=== PATIENT | female | born 1995 | race Caucasian/White ===

== ENCOUNTER 2017-08-14 23:50 | Emergency (ER) | payer MEDICAID, SELFPAY ==
[2017-08-14 23:51] VITALS: BP 160/92; PULSE 113; RESP 18; TEMP 36.9; O2SAT 99; BMI 26.0
[2017-08-15 00:39] LABS: Bacteria 0 SEEN /hpf (None Seen); Mucous, Urine 0 SEEN /hpf (<or=2+); Red Blood Cells-Urine 0 SEEN /hpf (0-5); Squamous Epithelial Cells - UA 0 SEEN /hpf (5-10); White Blood Cells 0 SEEN /hpf (0-5)
[2017-08-15 01:00] LABS: Color, Urine Yellow (Yellow); Glucose, Dipstick Normal (Normal); Ketone-Dipstick Negative (Negative); Leukocyte Esterase-Dipstick Negative /ul (Negative); Nitrite-Dipstick Negative (Negative); Occult Blood-Urine Negative /ul (Negative); Protein-Dipstick Negative (Negative); Urine Bilirubin Dipstick Negative (Negative); Urine Clarity Sl Cldy (Clear); Urine Urobilinogen Normal (Normal)
[2017-08-15 01:01] LABS: Amorphous Sediment 1+
[2017-08-15 01:16] LABS: hCG Titer Quant., Serum 1475 mIU/mL (<9 non-preg)
--- NOTE | 2017-08-15 01:18 | ED.DCSUM_ITS ---
- ER Visit Summary Date of Service: 08/15/17 Chief Complaint: [] , cramping History of Present Illness: The patient is a 22 F [] reports taking a positive test yesterday and complaining of cramping in the lower pelvic area beginning yesterday. Denies vaginal bleeding. Denies dysuria. Denies vaginal discharge. Denies nausea and vomiting. Denies fevers. No other complaints at this time. Physical Examination: [] Afebrile, vital signs stable. Cardiovascular exam is regular rate and rhythm. Lungs were auscultation. Abdomen is soft with mild lower adnexal crampy discomfort on palpation. No guarding or rebound tenderness. Remainder of exam is unremarkable. Patient is conversational throughout the entire history and physical examination. Test Results: [] Quantitative hCG measures 1475. Urinalysis negative. Emergency Department Course and Treatment: [] Patient is a very benign presentation. Her hCG measuring below 3000 does not warrant ultrasound at this time. Patient was encouraged to drink plenty of fluids and take Tylenol for analgesia. She was encouraged to establish herself with an SUSTAINABILITY COMMUNICATOR and receive care. Treatment Plan: [] Follow-up with SUSTAINABILITY COMMUNICATOR. Disposition: [] Discharge, stable. Impression: [] This note was generated with [employer] dictation software. It may contain incorrect words, spelling, and punctuation that were not noted in review of the chart prior to signing ED Disposition - Plan for ED Patient: Chief Complaint: Referrals: Lillian Mas, PAL-C [Primary Care Provider] -
--- NOTE | 2017-08-15 01:18 | ED.DEP ---
ED Disposition - Plan for ED Patient: Disposition: Home or Assisted Living Chief Complaint: Instructions: ED Care, Care for a Healthy Baby Referrals: Lillian Mas, RADAR SYSTEMS ENGINEER-C [Primary Care Provider] -
--- NOTE | 2017-08-15 01:32 | ED.RN ---
DISCHARGE INSTRUCTIONS GIVEN TO AND REVIEWED WITH PATIENT, PATIENT DENIES QUESTIONS OR CONCERNS AND VOICES UNDERSTANDING OF DISCHARGE INSTRUCTIONS. PT AMBULATES OUT OF ROOM WITHOUT DIFFICULTY.
== END 2017-08-15 01:33 | disposition home or self-care (01) ==
PROVIDERS: Emergency Provider Emergency Medicine; Family Provider Nurse Practitioner Primary Care; PCP Nurse Practitioner Primary Care
DX: Z32.01 Encounter for pregnancy test, result positive (principal); Z72.0 Tobacco use
CPT/HCPCS: 81001; 84702; 99282

== ENCOUNTER 2022-06-22 09:20 | Emergency (ER) | payer MEDICAID, SELFPAY ==
[2022-06-22 09:22] VITALS: BP 164/95; PULSE 113; RESP 17; TEMP 35.4; O2SAT 99; BMI 27.9
--- NOTE | 2022-06-22 09:25 | ED.VIS.CHEST ---
HPI History of Present Illness Chief Complaint: Chest Pain Informant: patient Onset/Context/Timing Onset: Days (4) Activity at onset: gradual Timing: Continuous Quality: Positive for Burning Location: Substernal, Left Chest and - (Epigastric) Worsened By: Eating Relieved By: Nothing Associated Symptoms: Positive for Nausea, Vomiting, Diaphoresis, Lightheadedness, Acid Reflux and Palpitations; Negative for Dyspnea, Cough or Fever Narrative Narrative: Patient presents with chest pain that began 4 days ago. Patient states it is gradually getting worse. Patient states the pain is over the epigastric and lower substernal area. Patient states the pain radiates into her left lower chest. Patient states it is worse whenever she eats anything. Patient states she has been taking antacids with no relief. Patient admits to some nausea and vomiting with it. Patient states she did break out into a sweat today. Patient states she feels lightheaded and dizzy. Patient also states she feels some palpitations. Prior Similar Symptoms: No CVD Risk Factors: Negative for Hypertension, Diabetes, Hypercholesterolemia, Family History 1' </=55 or Smoking PE Risk Factors: Negative for Recent Travel/Surgery, Recent Immobilization, Prior DVT or PE, Cancer or OCP + Smoking + >/=35 PFSH PFSH Medical History (Updated 06/22/22 @ 12:[address] Coy Ramos DO) Endometriosis determined by laparoscopy Medical History no medical history Home Medications Control 1 tab PO/SL DAILY 06/22/22 [History Last Taken Unknown] omeprazole 20 mg capsule,delayed release 20 mg PO DAILY #30 CAPSULES 06/22/22 [Rx Last Taken Unknown] Allergy/AdvReac Type Severity Reaction Status Date / Time Penicillins [PCN] Allergy Hives Verified 06/22/22 09:21 Surgical History (Updated 06/22/22 @ 09:[address] Coy Ramos DO) Hx of laparoscopy Surgical History no surgical history Social History Smoking Status: Former smoker ROS ROS ED Constitutional Constitutional ED: Denies chills or fever(s) Eyes Eyes: Denies blurry vision or change in vision ENT ENT ED: Denies rhinorrhea or sore throat Cardiovascular Cardiovascular: Reports chest pain and palpitations Respiratory/Chest Respiratory/Chest: Denies cough or dyspnea Gastrointestinal Gastrointestinal: Reports abdominal pain, nausea and vomiting Genitourinary Genitourinary ED: Denies dysuria or hematuria Musculoskeletal Musculoskeletal: Denies back pain or neck pain Integumentary Denies abscess or rash Neurologic Neurologic: Reports headache(s); Denies weakness Allergic/Immunologic Allergic/Immunologic ED: Denies mouth swelling or urticaria EXAM Physical Exam Const Vital Signs: 06/22/22 09:22 06/22/22 09:58 06/22/22 11:00 Temperature 95.8 F L Temperature Source Temporal Pulse Rate 113 H 89 Respiratory Rate 17 12 Respiratory Effort Normal Non-Labored Blood Pressure 164/95 H 148/89 H Blood Pressure Mean 118 108 Pulse Ox 99 96 Oxygen Delivery Method Room Air Room Air Positive well nourished and well developed General Appearance ED: well developed and NAD HEENT normocephalic and atraumatic Eyes PERRL and EOMs intact bilaterally Neck supple and no JVD Chest Wall palpation of chest normal Resp normal respiratory effort and clear to auscultation bilaterally Effort and Inspection: Negative for respiratory distress Cardio regular rate, regular rhythm and no murmurs GI normal to inspection, nondistended, normoactive bowel sounds, soft to palpation and non-distended GI Narrative: There is mild tenderness over the epigastric area. There is no rebound or guarding noted. Extremity normal to inspection General Extremety ED: Negative for edema or tenderness General Extremity: Negative for edema Neuro oriented x3, CN's II-XII intact bilaterally and no sensory deficits noted Sensorium / Orientation: awake and alert Motor Exam: strength 5/5 throughout Psych mental status grossly normal Heart Score History: Slightly/Non-Suspicious ECG: Normal Age: </= 45 years Risk Factors: No Risk Factors Score: 0 MDM MDM MDM Narrative Medical decision making narrative: Differential diagnosis includes gastritis, gastroesophageal reflux disease, pulmonary embolism, cardiac ischemia, cardiac dysrhythmia, cholelithiasis, cholecystitis, pancreatitis, and pneumonia. EKG will be obtained to assess for cardiac ischemia and dysrhythmia. Chest x-ray will be obtained to assess for pneumonia, pneumothorax, and pneumomediastinum. CBC will be obtained to assess for leukocytosis and anemia. Comprehensive metabolic profile will be obtained to assess for electrolyte abnormality, renal function, and hepatic function. Lipase will be obtained to assess for pancreatitis. Troponin will be obtained to assess for cardiac ischemia. Serum hCG will be obtained to assess for . D-dimer will be obtained to assess for pulmonary embolism. Lab Data Lab results narrative: CBC was reviewed and was within normal limits. D-dimer was reviewed and was elevated at 1.19. Comprehensive metabolic profile was reviewed and was within normal limits. Lipase was reviewed and was normal. High-sensitivity troponin was reviewed and was less than 3. Serum hCG was negative. Labs: Laboratory Results - last 24 hr 06/22/22 06/22/22 06/22/22 09:56 09:56 09:56 WBC 8.2 RBC 4.41 Hgb 12.9 Hct 39.3 MCV 89.1 MCH 29.3 MCHC 32.8 RDW Std Deviation 45.7 H RDW Coeff of Estrellita 14.0 Plt Count 420 MPV 9.9 Immature Gran % (Auto) 0.400 Neut % (Auto) 69.4 Lymph % (Auto) 21.7 [place] % (Auto) 5.7 Eos % (Auto) 2.2 Baso % (Auto) 0.6 Absolute Neuts (auto) 5.7 Absolute Lymphs (auto) 1.78 Nucleated RBC % 0 D-Dimer Quant (PE/DVT) 1.19 H* Sodium 140 Potassium 3.9 Chloride 106 Carbon Dioxide 25.0 Anion Gap 9 BUN 12 Creatinine 0.90 Estim Creat Clear Calc 74.26 Est GFR (MDRD) Af Amer 96 Est GFR (MDRD) Non-Af 80 BUN/Creatinine Ratio 13.3 Glucose 95 Calcium 9.6 Total Bilirubin 0.50 AST 17 ALT 22 Alkaline Phosphatase 47 Troponin I High Sens < 3 L Total Protein 7.8 Albumin 4.0 Globulin 3.8 Albumin/Globulin Ratio 1.1 Lipase 210 Serum , Qual 06/22/22 09:56 WBC RBC Hgb Hct MCV MCH MCHC RDW Std Deviation RDW Coeff of Estrellita Plt Count MPV Immature Gran % (Auto) Neut % (Auto) Lymph % (Auto) Davie % (Auto) Eos % (Auto) Baso % (Auto) Absolute Neuts (auto) Absolute Lymphs (auto) Nucleated RBC % D-Dimer Quant (PE/DVT) Sodium Potassium Chloride Carbon Dioxide Anion Gap BUN Creatinine Estim Creat Clear Calc Est GFR (MDRD) Af Amer Est GFR (MDRD) Non-Af BUN/Creatinine Ratio Glucose Calcium Total Bilirubin AST ALT Alkaline Phosphatase Troponin I High Sens Total Protein Albumin Globulin Albumin/Globulin Ratio Lipase Serum , Qual NEGATIVE Radiography Chest X-Ray - ED: 2 View, Read by ED Physician, Read by Radiologist and No Acute Disease Diagnostic Testing: Clinical Impression(s) from Imaging Studies Chest X-Ray 06/22/22 09:39 IMPRESSION: No radiographic evidence of acute cardiopulmonary disease. Electronically Signed: Keith Acosta MD at 11:53 EST , Chest CTA 06/22/22 10:44 IMPRESSION: Negative CTA chest. Electronically Signed: Keith Acosta MD at 12:10 EST , PA and lateral chest x-ray was obtained. There are 2 views. On my independent interpretation, lung quiroz are clear. There is normal cardiac silhouette. Bony thorax is normal. There is no acute process noted. Radiologist also interpreted the x-ray and agrees. CTA of the chest was obtained because of the elevated D-dimer. On my independent review, there is no evidence of pulmonary embolism or pneumothorax. There is no pneumonia noted. There is no aortic dissection noted. Radiologist also interpreted the CT scan and agrees. There is no acute cardiopulmonary process. EKG Initial EKG: Attestation: I personally reviewed and interpreted this EKG as follows: Interpretation: Sinus Rhythm (84) and No Acute Injury Pattern Comments: EKG was obtained. On my interpretation, it showed a normal sinus rhythm with a rate of 84. PA interval, QRS interval, and QTc intervals were all normal. [place] was normal. There are no acute ST or T wave changes. Prior EKG tracings: not available for review Prior: No Prior Treatment and Re-Evaluation Narrative: Patient was given a GI cocktail here. Patient vomited after this. Patient was given a dose of morphine and Zofran. Patient feels better on reevaluation. Patient was advised of her findings. Patient is concerned that this could be from her gallbladder. I reassured the patient that her liver function tests are normal and there does not appear to be any obstructive process noted. I did inform the patient that a gallbladder ultrasound may need to be ordered by her primary care physician as this is not available today. Patient was given a prescription for omeprazole. Patient understands and is agreeable with the plan. All questions were answered. Discharge Plan Triage Chief Complaint: Chest Pain ED Provider: Coy Ramos Dx/Rx/DC Orders Clinical Impression: Epigastric abdominal pain Instructions: ED Epigastric Pain Uncertain Cause Prescriptions: New omeprazole [omeprazole] 20 mg capsule,delayed release(DR/EC) 20 mg PO DAILY Qty: 30 0RF No Action Control 1 tab PO/SL DAILY Primary Care Provider: Lillian Mas NP Referrals: Lillian Mas NP, CURRICULUM COORDINATOR-C [Primary Care Provider] - 3-5 Days Disposition Disposition: Home, Self Care
--- NOTE | 2022-06-22 09:39 | RAD_ITS ---
EXAM: XR CHEST, 2 VIEWS CLINICAL INDICATION: Chest pain TECHNIQUE: Frontal and lateral views of the chest. This report was created using [employer] report generation technology. COMPARISON: None. FINDINGS: LUNGS AND PLEURAL SPACES: Unremarkable. No consolidation or edema. No pneumothorax. No effusion. HEART: Unremarkable. Cardiac silhouette not enlarged. MEDIASTINUM: Central airways and mediastinal contour are unremarkable. BONES/JOINTS: Unremarkable. SOFT TISSUES: Unremarkable. RAD/Chest PA and Lateral IMPRESSION: No radiographic evidence of acute cardiopulmonary disease. Electronically Signed: Keith Acosta MD at 11:53 EST ,
[2022-06-22 10:11] LABS: Absolute Lymphocyte Count 1.78 X10^3/uL (0.83-4.51); Absolute Neutrophil Count 5.7 X10^3/uL (2.0-7.7); Basophil# 0.05 X10^3/uL; Basophil% 0.6 % (0-1); Eosinophil# 0.18 X10^3/uL; Eosinophils% 2.2 % (0-5); Hematocrit 39.3 % (37-47); Hemoglobin 12.9 g/dL (12.0-15.0); Lymphocyte # 1.78 X10^3/ul (0.83-4.51); Lymphocyte % 21.7 % (19-41); Mean Corp Hgb Conc 32.8 g/dL (32-36); Mean Corpuscular Hgb 29.3 pg (27.0-32.0); Mean Corpuscular Volume 89.1 fL (81-99); Mean Platelet Vol. 9.9 fl (6.2-12.0); Monocyte# 0.47 X10^3/uL; Monocyte% 5.7 % (0-10); NRBC Flagged by Analyzer 0 % (0-5); Neutrophil # 5.68 X10^3/uL (2.7-7.7); Neutrophil % 69.4 % (47-70); Platelet Count 420 K/mm3 (150-450); RBC Distribution Width SD 45.7 fl (35.1-43.9); Red Blood Count 4.41 M/mm3 (4.2-5.4); White Blood Count 8.2 K/mm3 (4.4-11.0)
[2022-06-22] MEDS: Mag Hydrox/Al Hydrox/Simeth 30 ML UDC PO (10:18)
[2022-06-22 10:20] LABS: Internal QC Validated? YES +Cl - CLEAR BKGD; Pregnancy, Serum, hCG Quali. NEGATIVE Negative
[2022-06-22 10:24] LABS: ALB/GLOB Ratio 1.1 RATIO (0.9-2.4); AST(SGOT) 17 U/L (15-37); Alanine Aminotransfer ALT/SGPT 22 U/L (13-56); Alkaline Phosphatase 47 U/L (45-117); Anion Gap 9 (5-15); BUN 12 mg/dL (7-18); BUN/Creat Ratio 13.3 RATIO (10-20); Calcium,Total 9.6 mg/dL (8.5-10.1); Chloride 106 mmol/L (98-107); EST Glomerular Filtration Rate 80 mL/min (>60); Est Glom Filt Rate - Afr Amer 96 mL/min (>60); Estimated Creatinine Clearance 74.26 ml/min; Globulin 3.8 g/dL (2.2-4.2); Glucose 95 mg/dL (74-106); Lipase 210 U/L (73-393); Potassium 3.9 mmol/L (3.5-5.1); Protein, Total 7.8 g/dL (6.4-8.2); Sodium Level 140 mmol/L (136-145); Troponin-I HS < 3 pg/mL (3.0-54.0)
--- NOTE | 2022-06-22 10:25 | EKG12_ITS ---
Test Reason : CHEST PAIN Blood Pressure : / mmHG Vent. Rate : 084 BPM Atrial Rate : 084 BPM P-R Int : 140 ms QRS Dur : 076 ms QT Int : 344 ms P-R-T Axes : 037 057 028 degrees QTc Int : 406 ms Normal sinus rhythm Normal ECG Confirmed by JANE BETANCUR, MARY ALICE ([id number]), photo editor RUSSELL LONDON ([id number]) on 06/23/2022 10:07:24 AM Referred By: ORESTES Confirmed By:MARY ALICE LARA MD
[2022-06-22 10:27] LABS: D-Dimer Quantitative (DVT/PE) 1.19 FEU/ug/m (0.27-0.49)
--- NOTE | 2022-06-22 10:44 | CT_ITS ---
EXAM: CT ANGIOGRAPHY CHEST WITHOUT AND WITH INTRAVENOUS CONTRAST CLINICAL INDICATION: Elevated D-dimer TECHNIQUE: Helically acquired angiography images were obtained of the chest without and with intravenous contrast. This CT exam was performed using one or more of the following dose reduction techniques: automated exposure control, adjustment of the mA and/or kV according to patient size, and/or use of iterative reconstruction technique. This report was created using [employer] report generation technology. MIP reconstructed images were created and reviewed. CONTRAST: IV 100mL Isovue-370 RADIATION DOSE: CTDIvol = 8.91 mGy, DLP = 354.63 mGy-cm COMPARISON: None. FINDINGS: PULMONARY ARTERIES: Unremarkable. Normal in caliber. No evidence of pulmonary embolism. AORTA: Unremarkable. Normal in caliber. No evidence of dissection. GREAT VESSELS OF AORTIC ARCH: Unremarkable. Normal in caliber. No evidence of dissection. LUNGS AND PLEURAL SPACES: Unremarkable. No mass. No consolidation or edema. No pleural effusion or thickening. No pneumothorax. HEART: Unremarkable. Heart size is normal. No pericardial effusion. No signs of right heart strain, ratio of right ventricle to left ventricle measures less than 1. MEDIASTINUM: Unremarkable. No mediastinal or hilar adenopathy. Esophagus is unremarkable. No hiatal hernia. THYROID: Unremarkable. No thyroid lesions. BONES/JOINTS: Unremarkable. No suspicious lytic or blastic abnormality. CT/CTA Chest W/WO Contrast IMPRESSION: Negative CTA chest. Electronically Signed: Keith Acosta MD at 12:10 RUST ,
[2022-06-22] MEDS: Ondansetron 4 MG/2 ML Vial IV (10:54)
[2022-06-22] MEDS: Morphine 4 MG/ML Syringe IV (10:54)
[2022-06-22] MEDS: 0.9% Normal Saline 1,000 ML 1000 ML IV (10:54)
[2022-06-22 11:00] VITALS: BP 148/89; PULSE 89; RESP 12; O2SAT 96
== END 2022-06-22 14:00 | disposition home or self-care (01) ==
PROVIDERS: Emergency Provider Emergency Medicine; PCP Nurse Practitioner Primary Care; Visit Provider Emergency Medicine
DX: R10.13 Epigastric pain (principal); R11.2 Nausea with vomiting, unspecified; Z87.891 Personal history of nicotine dependence; R00.2 Palpitations; R07.9 Chest pain, unspecified
CPT/HCPCS: 71046; 71275; 80053; 83690; 84484; 84703; 85025; 85379; 93005; 96361; 96374; 96375; 99283; J7030; Q9967; A4216; J2405

== ENCOUNTER 2022-06-24 01:02 | Emergency (ER) | payer MEDICAID, SELFPAY ==
[2022-06-24 01:03] VITALS: BP 132/85; PULSE 85; RESP 19; TEMP 37.1; O2SAT 99; BMI 28.3
--- NOTE | 2022-06-24 01:18 | CT_ITS ---
INDICATION: pain EXAMINATION: CT ABDOMEN AND PELVIS WITH CONTRAST - CT Abdomen And Pelvis W/ Contrast Injection TECHNIQUE: Helically acquired images were obtained of the abdomen and pelvis following IV contrast. A radiation dose optimization technique was used for this scan. IV Contrast dosage and agent: Oral contrast: None. COMPARISON: None. FINDINGS: LOWER CHEST: Lung bases are clear. No cardiomegaly or pericardial effusion. LIVER: Homogeneous. No focal mass. GALLBLADDER AND BILIARY TREE: No calcified gallstones. No gallbladder distension or wall edema. No intra- or extrahepatic biliary ductal dilation. PANCREAS: No focal cystic or solid mass. SPLEEN: Normal size without focal cystic or solid mass. ADRENAL GLANDS: No nodules. KIDNEYS AND URETERS: Normal renal size and position. No hydronephrosis. PERITONEUM: No ascites or free air. No other fluid collection. BOWEL: No evidence of acute appendicitis. No stomach or bowel distension. No focal inflammatory change. LYMPH NODES: No enlarged mesenteric or retroperitoneal lymph nodes. VESSELS: Aorta is non-dilated. URINARY BLADDER: Unremarkable. REPRODUCTIVE ORGANS: No pelvic masses. ABDOMINAL WALL: No discrete abdominal or pelvic wall hernia. BONES: No lytic or blastic abnormality. CT/Abdomen/Pelvis W IV Cont ONLY IMPRESSION: Negative CT of the abdomen and pelvis with contrast. Electronically Signed: Jareth Drake MD at 2:18 EST ,
--- NOTE | 2022-06-24 01:20 | EX.ED.DYSGE1 ---
HPI History of Present Illness Chief Complaint: Abd Pain Informant: patient Narrative Narrative: Patient Reina presents with pain not going away. She states that her pain started about 11 days ago. Is epigastric and left upper quadrant. It comes in spasms or waves. But it never goes away. Its gotten more constant since this recent Thursday. She was seen in the emergency department. She had elevated D-dimer and CTA of the chest was done. She is describing more epigastric and left upper quadrant pain to me. It goes to area under the ribs. She has had nausea and vomiting with this. No blood in the vomitus. Food does not bother this so she is really not eating. No fever. No lower abdominal or pelvic pain. Last menstrual cycle was normal. No discharge. No back or flank pain. No history of cholecystectomy. No history of GERD. She did have laparoscopy for endometriosis in the past. PFSH [facility] Medical History Endometriosis determined by laparoscopy Home Medications Control 1 tab PO/SL DAILY 06/22/22 [History Last Taken Unknown] ondansetron 4 mg disintegrating tablet 4 mg PO Q8H PRN PRN Nausea #10 tabs 06/24/22 [Rx Last Taken Unknown] sucralfate 1 gram tablet (Carafate) 1 g PO TID #21 tabs 06/24/22 [Rx Last Taken Unknown] Allergy/AdvReac Type Severity Reaction Status Date / Time Penicillins [PCN] Allergy Hives Verified 06/24/22 01:07 Surgical History Hx of laparoscopy Social History Smoking Status: Former smoker ROS ROS ED Constitutional Constitutional ED: Denies fever(s) ENT ENT ED: Denies sore throat Cardiovascular Cardiovascular: Denies palpitations Respiratory/Chest Respiratory/Chest: Denies cough or dyspnea Gastrointestinal Gastrointestinal: Reports abdominal pain, nausea and vomiting; Denies diarrhea Genitourinary Genitourinary ED: Denies dysuria or hematuria Musculoskeletal Musculoskeletal: Denies back pain Integumentary Denies rash Neurologic Neurologic: Denies headache(s) Endocrine Endocrinology: Denies polydipsia or polyuria Hematologic/Lymphatic Hematologic/Lymphatic: Denies anemia Allergic/Immunologic Allergic/Immunologic ED: Denies urticaria EXAM Physical Exam Narrative Exam Narrative: Patient awake and alert. She looks mildly uncomfortable sitting on bed. She moves frequently trying to get comfortable. HEENT shows no jaundice. Mucous membranes are minimally dry. Neck shows no JVD or meningismus Lungs are clear bilaterally. Heart is regular without murmur gallop or rub. Abdomen is nondistended and has normal bowel sounds. She does have some tenderness toward the epigastric and left upper quadrant. She has a little bit of discomfort of the right upper quadrant but much less than the other areas. No tenderness in the lower abdomen. No rebound or guarding. No CVA tenderness or suprapubic tenderness Extremities have normal range of motion no swelling. Patient is alert oriented and appropriate. Const Vital Signs: 06/24/22 01:03 Temperature 98.7 F Temperature Source Temporal Pulse Rate 85 Respiratory Rate 19 H Blood Pressure 132/85 H Blood Pressure Mean 100 Pulse Ox 99 Oxygen Delivery Method Room Air MDM MDM MDM Narrative Medical decision making narrative: My independent interpretation of the CT scan of the abdomen with IV contrast shows no acute process. Gallbladder looked good. I saw no free air. No sign of obstruction. Kidneys look normal. Official reading showed no intra-abdominal process. CBC showed minimal elevation of white count at 11.5 that could be just demargination. Platelets were also a little bit up. Electrolytes liver function test and lipase were unremarkable. was unremarkable. Her urine was cloudy and hinted a little bit of a UTI. But I talked to the patient again. She is not having any frequency urgency dysuria change in color or odor. She has no symptoms of UTI. I am reluctant to treat this since she is totally asymptomatic. I do not think UTI is causing epigastric and left upper quadrant pain. I will send her urine off for culture. If this shows positive or if she develops symptoms we will initiate treatment. I find out that the patient is on omeprazole but has only been on it for a day. She should continue on that. I will write for Carafate. We will also write for some Zofran. I explained that most likely she has gastritis and possibly peptic ulcer disease. But at this point there is no sign of perforation or bleeding that would require admission and we need to calm this down. We also discussed diet. She loves tomato based sauces but I explained that she needs to cut these out for a while. We discussed reasons to return and follow-up. I will give her referral to gastroenterology also. Lab Data Attestation: I reviewed the patient's lab results. Labs: Laboratory Results - last 24 hr 06/24/22 06/24/22 06/24/22 01:08 01:08 01:08 WBC 11.5 H RBC 4.64 Hgb 13.6 Hct 39.3 MCV 84.7 MCH 29.3 MCHC 34.6 D RDW Std Deviation 42.2 RDW Coeff of Estrellita 13.7 Plt Count 453 H MPV 9.9 Immature Gran % (Auto) 0.500 Neut % (Auto) 71.4 H Lymph % (Auto) 18.0 L Sampson % (Auto) 8.6 Eos % (Auto) 0.9 Baso % (Auto) 0.6 Absolute Neuts (auto) 8.2 H Absolute Lymphs (auto) 2.07 Nucleated RBC % 0 Sodium 139 Potassium 3.8 Chloride 102 Carbon Dioxide 29.0 Anion Gap 8 BUN 11 Creatinine 0.88 Estim Creat Clear Calc 75.95 Est GFR (MDRD) Af Amer 99 Est GFR (MDRD) Non-Af 82 BUN/Creatinine Ratio 12.5 Glucose 105 Calcium 9.7 Total Bilirubin 0.60 AST 24 ALT 28 Alkaline Phosphatase 57 Total Protein 8.3 H Albumin 4.2 Globulin 4.1 Albumin/Globulin Ratio 1.0 Lipase 226 Serum , Qual NEGATIVE Urine Color Urine Clarity Urine pH Ur Specific [place] Urine Protein Urine Glucose (UA) Urine Ketones Urine Occult Blood Urine Nitrite Urine Bilirubin Urine Urobilinogen Ur Leukocyte Esterase Urine RBC Urine WBC Ur Squamous Epith Cells Ur Renal Epithelial Cell Amorphous Sediment Urine Bacteria Urine Mucus 06/24/22 01:30 WBC RBC Hgb Hct MCV MCH MCHC RDW Std Deviation RDW Coeff of Estrellita Plt Count MPV Immature Gran % (Auto) Neut % (Auto) Lymph % (Auto) Sampson % (Auto) Eos % (Auto) Baso % (Auto) Absolute Neuts (auto) Absolute Lymphs (auto) Nucleated RBC % Sodium Potassium Chloride Carbon Dioxide Anion Gap BUN Creatinine Estim Creat Clear Calc Est GFR (MDRD) Af Amer Est GFR (MDRD) Non-Af BUN/Creatinine Ratio Glucose Calcium Total Bilirubin AST ALT Alkaline Phosphatase Total Protein Albumin Globulin Albumin/Globulin Ratio Lipase Serum , Qual Urine Color Yellow Urine Clarity Cloudy Urine pH 8.0 Ur Specific [place] 1.020 Urine Protein 30 H Urine Glucose (UA) Normal Urine Ketones Negative Urine Occult Blood 150 H Urine Nitrite Negative Urine Bilirubin Negative Urine Urobilinogen Normal Ur Leukocyte Esterase 500 H Urine RBC 0-5 SEEN Urine WBC 10-25 SEEN Ur Squamous Epith Cells 0-5 SEEN Ur Renal Epithelial Cell 0-5 SEEN Amorphous Sediment 4+ Urine Bacteria 3+ Urine Mucus 0 SEEN Radiography Diagnostic Testing: Clinical Impression(s) from Imaging Studies Abdomen/Pelvis CT 06/24/22 01:18 IMPRESSION: Negative CT of the abdomen and pelvis with contrast. Electronically Signed: Jareth Drake MD at 2:18 EST , Discharge Plan Triage Chief Complaint: Abd Pain ED Provider: Raymundo Allan Dx/Rx/DC Orders Clinical Impression: Epigastric abdominal pain, Acute gastritis Instructions: ED Gastritis (Adult) Prescriptions: New ondansetron [ondansetron] 4 mg tablet,disintegrating 4 mg PO Q8H PRN PRN (Reason: Nausea) Qty: 10 0RF sucralfate [Carafate] 1 gram tablet 1 g PO TID Qty: 21 0RF No Action Control 1 tab PO/SL DAILY Primary Care Provider: Lillian Mas NP Referrals: Jameel Garcia DO [Med Staff - Active Staff] - As soon as possible (call for appointment) Lillian Mas NP, CHILDRENS CLUB ATTENDANT-C [Primary Care Provider] - 3-5 Days if not improving Disposition Disposition: Home, Self Care
[2022-06-24 01:26] LABS: Absolute Lymphocyte Count 2.07 X10^3/uL (0.83-4.51); Absolute Neutrophil Count 8.2 X10^3/uL (2.0-7.7); Basophil# 0.07 X10^3/uL; Basophil% 0.6 % (0-1); Eosinophils% 0.9 % (0-5); Hematocrit 39.3 % (37-47); Hemoglobin 13.6 g/dL (12.0-15.0); Lymphocyte # 2.07 X10^3/ul (0.83-4.51); Mean Corp Hgb Conc 34.6 g/dL (32-36); Mean Corpuscular Hgb 29.3 pg (27.0-32.0); Mean Corpuscular Volume 84.7 fL (81-99); Mean Platelet Vol. 9.9 fl (6.2-12.0); Monocyte# 0.99 X10^3/uL; Monocyte% 8.6 % (0-10); NRBC Flagged by Analyzer 0 % (0-5); Neutrophil # 8.23 X10^3/uL (2.7-7.7); Neutrophil % 71.4 % (47-70); Platelet Count 453 K/mm3 (150-450); RBC Distribution Width CV 13.7 % (11.6-14.6); RBC Distribution Width SD 42.2 fl (35.1-43.9); Red Blood Count 4.64 M/mm3 (4.2-5.4); White Blood Count 11.5 K/mm3 (4.4-11.0)
[2022-06-24] MEDS: Ondansetron 4 MG/2 ML Vial IV (01:26)
[2022-06-24] MEDS: Morphine 4 MG/ML Syringe IV (01:26)
[2022-06-24] MEDS: 0.9% Normal Saline 1,000 ML 1000 ML IV (01:28)
[2022-06-24 01:35] LABS: Internal QC Validated? YES +Cl - CLEAR BKGD; Pregnancy, Serum, hCG Quali. NEGATIVE Negative
[2022-06-24 01:37] LABS: Mucous, Urine 0 SEEN /hpf (<or=2+)
[2022-06-24 01:38] LABS: Color, Urine Yellow (Yellow); Glucose, Dipstick Normal (Normal); Ketone-Dipstick Negative (Negative); Leukocyte Esterase-Dipstick 500 /ul (Negative); Nitrite-Dipstick Negative (Negative); Occult Blood-Urine 150 /ul (Negative); Protein-Dipstick 30 mg/dl (Negative); Urine Bilirubin Dipstick Negative (Negative); Urine Clarity Cloudy (Clear); Urine Urobilinogen Normal (Normal)
[2022-06-24 01:42] LABS: AST(SGOT) 24 U/L (15-37); Alanine Aminotransfer ALT/SGPT 28 U/L (13-56); Albumin, Serum 4.2 g/dL (3.2-5.0); Alkaline Phosphatase 57 U/L (45-117); Anion Gap 8 (5-15); BUN 11 mg/dL (7-18); BUN/Creat Ratio 12.5 RATIO (10-20); Calcium,Total 9.7 mg/dL (8.5-10.1); Chloride 102 mmol/L (98-107); Creatinine, Serum 0.88 mg/dL (0.55-1.02); EST Glomerular Filtration Rate 82 mL/min (>60); Est Glom Filt Rate - Afr Amer 99 mL/min (>60); Estimated Creatinine Clearance 75.95 ml/min; Globulin 4.1 g/dL (2.2-4.2); Glucose 105 mg/dL (74-106); Lipase 226 U/L (73-393); Potassium 3.8 mmol/L (3.5-5.1); Protein, Total 8.3 g/dL (6.4-8.2); Sodium Level 139 mmol/L (136-145)
[2022-06-24 01:44] LABS: Amorphous Sediment 4+; Bacteria 3+ /hpf (None Seen); Red Blood Cells-Urine 0-5 SEEN /hpf (0-5); Renal Epithelial Cells 0-5 SEEN /hpf (0-5); Squamous Epithelial Cells - UA 0-5 SEEN /hpf (5-10); White Blood Cells 10-25 SEEN /hpf (0-5)
== END 2022-06-24 03:00 | disposition home or self-care (01) ==
PROVIDERS: Emergency Provider Emergency Medicine; PCP Nurse Practitioner Primary Care; Visit Provider Emergency Medicine
DX: K29.00 Acute gastritis without bleeding (principal); R10.13 Epigastric pain
CPT/HCPCS: 74177; 80053; 81001; 83690; 84703; 85025; 87086; 87088; 87186; 96361; 96374; 96375; 99283; J7030; Q9967; A4216; J2405; J3490